=== PATIENT | male | born 1970 | race Caucasian/White ===

== ENCOUNTER 2018-04-17 16:31 | Emergency (ER) | payer OTHER ==
[~2018-04-17] VITALS: Ht 170.2 cm; Wt 71.2 kg
[2018-04-17 16:37] VITALS: Ht 170.2 cm; Wt 71.2 kg
[2018-04-17 17:06] LABS: BASOPHIL % 0.2 % (0-2); PLATELET COUNT 245 x10^3mcL (130-400); RED CELL DISTRIBUTION WIDTH 13.1 % (11.5-14.5)
[2018-04-17 17:16] LABS: CALCIUM 8.5 mg/dL (8.5-10.1); CHLORIDE SERUM 104 mmol/L (98-107); CREATININE SERUM 0.9 mg/dL (0.7-1.3); GFR1 > 60 mL/min; GLUCOSE SERUM 115 mg/dL (74-106); POTASSIUM SERUM 3.5 mmol/L (3.5-5.1); SODIUM SERUM 131 mmol/L (136-145)
[2018-04-17 17:20] LABS: ALBUMIN 3.9 g/dL (3.4-5.0); ALKALINE PHOSPHATASE 44 U/L (46-116); ALT/SGPT 18 U/L (16-63); AST/SGOT 12 U/L (15-37); BILIRUBIN TOTAL 0.47 mg/dL (0.20-1.00); LIPASE 90 IU/L (73-393); TOTAL PROTEIN, SERUM 6.7 g/dL (6.4-8.2)
[2018-04-17 18:05] LABS: AMPHETAMINE QUAL UR NONE DETECTED (See below)
[2018-04-17 18:38] VITALS: BP 126/75
== END 2018-04-17 18:38 | disposition home or self-care (01) ==
LOC: ED 16:31
PROVIDERS: Emergency Medicine
DX: K21.9 Gastro-esophageal reflux disease without esophagitis (principal); R06.02 Shortness of breath; Z98.84 Bariatric surgery status
CPT/HCPCS: 36415; 83880; Q0092; Q0162

== ENCOUNTER 2018-07-24 10:05 | Emergency (ER) | payer OTHER ==
[~2018-07-24] VITALS: Ht 170.2 cm; Wt 75.7 kg
[2018-07-24 10:15] VITALS: Ht 170.2 cm; Wt 75.7 kg
[2018-07-24 12:22] VITALS: BP 122/68
[2018-07-25 06:27] LABS: RAPID PLASMA REAGIN Non Reactive (Non Reactive)
== END 2018-07-24 12:22 | disposition home or self-care (01) ==
LOC: ED 10:05
PROVIDERS: Emergency Medicine
DX: R30.0 Dysuria (principal); Z11.3 Encounter for screening for infections with a predominantly sexual mode of transmission; F17.210 Nicotine dependence, cigarettes, uncomplicated
CPT/HCPCS: 86694; 87491; 87591; J0696

== ENCOUNTER 2019-11-04 16:25 | Emergency (ER) | payer OTHER ==
[~2019-11-04] VITALS: Ht 170.2 cm; Wt 70.8 kg
[2019-11-04 16:42] VITALS: Ht 170.2 cm; Wt 70.8 kg
[2019-11-04 17:21] LABS: BASOPHIL % 0.4 % (0-2); PLATELET COUNT 291 x10^3mcL (130-400); RED CELL DISTRIBUTION WIDTH 13.3 % (11.5-14.5)
[2019-11-04 17:24] LABS: CALCIUM 8.7 mg/dL (8.5-10.1); CHLORIDE SERUM 107 mmol/L (98-107); CREATININE SERUM 0.8 mg/dL (0.7-1.3); GFR1 > 60 mL/min; GLUCOSE SERUM 82 mg/dL (74-106); POTASSIUM SERUM 4.6 mmol/L (3.5-5.1); SODIUM SERUM 145 mmol/L (136-145)
[2019-11-04 17:37] LABS: ALBUMIN 4.1 g/dL (3.4-5.0); ALKALINE PHOSPHATASE 74 U/L (46-116); ALT/SGPT 53 U/L (16-63); AST/SGOT 29 U/L (15-37); BILIRUBIN TOTAL 0.2 mg/dL (0.20-1.00)
[2019-11-04 18:40] VITALS: BP 153/88
== END 2019-11-04 18:40 | disposition home or self-care (01) ==
LOC: ED 16:25
PROVIDERS: Specialist
DX: H83.09 Labyrinthitis, unspecified ear (principal); F17.210 Nicotine dependence, cigarettes, uncomplicated; Z98.84 Bariatric surgery status; Z98.890 Other specified postprocedural states
CPT/HCPCS: 36415; 82962; 99406

== ENCOUNTER 2020-03-28 19:07 | Emergency (ER) | payer OTHER ==
[~2020-03-28] VITALS: Ht 172.7 cm; Wt 74.8 kg
[2020-03-28 19:26] VITALS: Ht 172.7 cm; Wt 74.8 kg
[2020-03-28 20:49] LABS: UA SPECIFIC GRAVITY <=1.005 (1.005-1.035); microscopic required? YES; urine erythrocyte 1+ (NEGATIVE)
[2020-03-28 21:18] VITALS: BP 130/84
[2020-03-30 08:06] LABS: RAPID PLASMA REAGIN Non Reactive (Non Reactive)
== END 2020-03-28 21:18 | disposition home or self-care (01) ==
LOC: ED 19:07
PROVIDERS: Specialist
DX: N39.0 Urinary tract infection, site not specified (principal); N48.5 Ulcer of penis; N48.22 Cellulitis of corpus cavernosum and penis; Z98.84 Bariatric surgery status
CPT/HCPCS: 82962; 87491; 87591; J0696